=== PATIENT | female | born 1965 | race American Indian/Alaskan Native ===

== ENCOUNTER 2021-02-10 07:21 | Emergency (ER) | payer SELFPAY ==
[2021-02-10] MEDS ORDERED: ACETAMINOPHEN 500 MG TAB PO ONE (07:58)
--- NOTE | 2021-02-10 08:39 | XRay Report ---
CHEST 2 VIEWS INDICATION / CLINICAL INFORMATION: cough. COMPARISON: None available. FINDINGS: SUPPORT DEVICES: None. HEART / MEDIASTINUM: No significant abnormality. LUNGS / PLEURA: No significant pulmonary or pleural abnormality. No pneumothorax. ADDITIONAL FINDINGS: No significant additional findings. IMPRESSION: 1. No acute findings. Signer Name: Ricardo Mendoza MD Signed: 02/10/2021 8:34 AM Workstation Name: [id number]
--- NOTE | 2021-02-10 08:48 | Emergency Department Report ---
- General Chief Complaint: Earache Stated Complaint: FEVER,EAR PAIN/SIDE PAIN Time Seen by Provider: 02/10/21 07:38 Source: patient Mode of arrival: Ambulatory Limitations: No Limitations - History of Present Illness MD Complaint: fever, cough, rhinorrhea, nasal congestion, other (left earache) -: days(s) Severity: mild Severity scale (0 -10): 8 Quality: aching Consistency: constant Improves With: nothing Worsens With: nothing Associated Symptoms: fever, chills, rhinorrhea, nasal congestion, cough, ear pain. denies: myalgias, diaphoresis, headache, sore throat, stiff neck, chest pain, shortness of breath, abdominal pain, nausea, vomiting, diarrhea, dysuria, rash, confusion, right sweats, weight loss, epistaxis, hoarseness Treatments Prior to Arrival: none - Related Data Previous Rx's Medication Instructions Recorded Last Taken Type Acetaminophen [Acetaminophen 8 650 mg PO Q8H PRN #12 tablet.er 02/10/21 Unknown Rx Hour] Azithromycin [Zithromax Z-ANTONIO] 250 mg PO DAILY #6 tablet 02/10/21 Unknown Rx Allergies Allergy/AdvReac Type Severity Reaction Status Date / Time No Known Allergies Allergy Unverified 02/10/21 07:43 ED Review of Systems ROS: Stated complaint: FEVER,EAR PAIN/SIDE PAIN Other details as noted in HPI Comment: All other systems reviewed and negative Constitutional: chills, fever Eyes: denies: eye pain, eye discharge, vision change ENT: ear pain. denies: throat pain, dental pain, hearing loss, epistaxis, congestion Respiratory: cough. denies: shortness of breath, wheezing Cardiovascular: denies: chest pain, palpitations Endocrine: no symptoms reported Gastrointestinal: denies: abdominal pain, nausea, diarrhea Genitourinary: denies: urgency, dysuria, discharge Musculoskeletal: denies: back pain, joint swelling, arthralgia Skin: denies: rash, lesions Neurological: denies: headache, weakness, paresthesias Psychiatric: denies: anxiety, depression Hematological/Lymphatic: denies: easy bleeding, easy bruising ED Past Medical Hx - Past Medical History Previous Medical History?: Yes Hx Hypertension: Yes - Surgical History Past Surgical History?: Yes Additional Surgical History: x 4, Left arm - Social History Smoking Status: Former Smoker Substance Use Type: None - Medications Home Medications: Home Medications Medication Instructions Recorded Confirmed Last Taken Type Acetaminophen [Acetaminophen 8 650 mg PO Q8H PRN #12 tablet.er 02/10/21 Unknown Rx Hour] Azithromycin [Zithromax Z-ANTONIO] 250 mg PO DAILY #6 tablet 02/10/21 Unknown Rx ED Physical Exam - General Limitations: No Limitations General appearance: alert, in no apparent distress - Head Head exam: Present: atraumatic, normocephalic - Eye Eye exam: Present: normal appearance - Expanded ENT Exam Expanded Ear exam: Present: normal external inspection TM/Canal exam: Erythema: Left TM, Bulging: Left TM Mouth exam: Present: normal external inspection, tongue normal. Absent: drooling, trismus, muffled voice Teeth exam: Present: normal inspection Throat exam: Positive: normal inspection. Negative: tonsillar erythema, tonsillomegaly, tonsillar exudate, R peritonsillar mass, L peritonsillar mass - Neck Neck exam: Present: normal inspection, full ROM. Absent: tenderness, meningismus, lymphadenopathy - Respiratory Respiratory exam: Present: normal lung sounds bilaterally. Absent: respiratory distress, wheezes, rales, rhonchi, stridor, chest wall tenderness, accessory muscle use, decreased breath sounds, prolonged expiratory - Cardiovascular Cardiovascular Exam: Present: regular rate, normal rhythm, tachycardia, normal heart sounds. Absent: bradycardia, irregular rhythm, systolic murmur, diastolic murmur, rubs, gallop - GI/Abdominal GI/Abdominal exam: Present: soft, normal bowel sounds. Absent: distended, tenderness, guarding, rebound, rigid, diminished bowel sounds - Extremities Exam Extremities exam: Present: normal inspection, full ROM - Back Exam Back exam: Present: normal inspection, full ROM. Absent: tenderness, CVA tenderness (R), CVA tenderness (L), muscle spasm, paraspinal tenderness, vertebral tenderness, rash noted - Neurological Exam Neurological exam: Present: alert, oriented X3, normal gait - Psychiatric Psychiatric exam: Present: normal affect, normal mood - Skin Skin exam: Present: warm, dry, intact, normal color. Absent: rash ED Course Vital Signs 02/10/21 02/10/21 07:39 10:07 Temperature 101.6 F H 99.2 F Pulse Rate 100 H 90 Respiratory 18 18 Rate Blood Pressure 143/94 Blood Pressure 112/72 [Right] O2 Sat by Pulse 98 99 Oximetry - Reevaluation(s) Reevaluation #1: 02/10/21 08:47 Patient is speaking in full sentences with no signs of distress noted. ED Medical Decision Making - Lab Data Result diagrams: 02/10/21 08:45 02/10/21 08:45 Lab Results 02/10/21 02/10/21 02/10/21 Range/Units 08:45 08:45 08:48 WBC 4.3 L (4.5-11.0) K/mm3 RBC 4.96 (3.65-5.03) M/mm3 Hgb 12.7 (10.1-14.3) gm/dl Hct 39.0 (30.3-42.9) % MCV 79 (79-97) fl MCH 26 L (28-32) pg MCHC 33 (30-34) % RDW 22.4 H (13.2-15.2) % Plt Count 160 (140-440) K/mm3 Lymph % (Auto) 20.2 (13.4-35.0) % [place] % (Auto) 5.1 (0.0-7.3) % Eos % (Auto) 0.0 (0.0-4.3) % Baso % (Auto) 0.3 (0.0-1.8) % Lymph # (Auto) 0.9 L (1.2-5.4) K/mm3 [place] # (Auto) 0.2 (0.0-0.8) K/mm3 Eos # (Auto) 0.0 (0.0-0.4) K/mm3 Baso # (Auto) 0.0 (0.0-0.1) K/mm3 Seg Neutrophils % 74.4 H (40.0-70.0) % Seg Neutrophils # 3.2 (1.8-7.7) K/mm3 Sodium 134 L (137-145) mmol/L Potassium 4.3 (3.6-5.0) mmol/L Chloride 95.5 L (98-107) mmol/L Carbon Dioxide 28 (22-30) mmol/L Anion Gap 15 mmol/L BUN 10 (7-17) mg/dL Creatinine 0.9 (0.6-1.2) mg/dL Estimated GFR > 60 ml/min BUN/Creatinine Ratio 11 % Glucose 115 H (65-100) mg/dL Calcium 8.7 (8.4-10.2) mg/dL Urine Color Yellow (Yellow) Urine Turbidity Clear (Clear) Urine pH 5.0 (5.0-7.0) Ur Specific [place] 1.015 (1.003-1.030) Urine Protein 100 mg/dl (Negative) mg/dL Urine Glucose (UA) Neg (Negative) mg/dL Urine Ketones Tr (Negative) mg/dL Urine Blood Neg (Negative) Urine Nitrite Neg (Negative) Urine Bilirubin Neg (Negative) Urine Urobilinogen < 2.0 (<2.0) mg/dL Ur Leukocyte Esterase Neg (Negative) Urine WBC (Auto) 2.0 (0.0-6.0) /HPF Urine RBC (Auto) 4.0 (0.0-6.0) /HPF U Epithel Cells (Auto) < 1.0 (0-13.0) /HPF Urine Mucus Few /HPF - Radiology Data [facility] [address] [place] [address] XRay Report Signed Patient: HENRY RUSSELL MR#: [id number] : 1965 Acct:[id number] Age/Sex: 55 / F ADM Date: 02/10/21 Loc: ED Attending Dr: Order ing Physician: CAT JONES NP Date of Service: 02/10/21 Procedure(s): XR chest routine 2V Accession Number(s): [id number] cc: CAT JONES NP Fluoro Time In Minutes: CHEST 2 VIEWS INDICATION / CLINICAL INFORMATION: cough. COMPARISON: None available. FINDINGS: SUPPORT DEVICES: None. HEART / MEDIASTINUM: No significant abnormality. LUNGS / PLEURA: No significant pulmonary or pleural abnormality. No pneumothorax. ADDITIONAL FINDINGS: No significant additional findings. IMPRESSION: 1. No acute findings. Signer Name: Ricardo Mendoza MD Signed: 02/10/2021 8:34 AM Workstation Name: [id number] Transcribed By: DT Dictated By: Darinel Mendoza MD Electronically Authenticated By: Darinel Mendoza MD Signed Date/Time: 02/10/21833 DD/ 3 TD/TT: - Medical Decision Making This is a 55-year-old female that presents with suspected Covid and left otitis media. Patient is stable and was examined by me. Chest x-ray has been obtained and dictated by radiologist with normal exam. Patient notified of the lab results patient is notified of x-ray results with no questions noted. Patient does meet clinical concerns of COVID-19 but patient was instructed and educated on signs and symptoms and to self quarantine and seek medical attention as soon as possible if symptoms worsen and. Patient be discharged with Z-Antonio patient was instructed to increase hydration, rest and take Motrin for fever episodes. Patient received Tylenol in the ED. Vitals stable. Patient is nonfebrile and normal heart rate. Patient was instructed Follow-up with a primary care doctor in 3-5 days or if symptoms worsen and continue return to emergency room as soon as possible. At time time of discharge, the patient does not seem toxic or ill in appearance. No acute signs of distress noted. Patient agrees to discharge treatment plan of care. No further questions noted by the patient.nt. Critical care attestation.: If time is entered above; I have spent that time in minutes in the direct care of this critically ill patient, excluding procedure time. ED Disposition Clinical Impression: Suspected COVID-19 virus infection Left otitis media Qualifiers: Otitis media type: unspecified Qualified Code(s): H66.92 - Otitis media, unspecified, left ear Disposition: 01 HOME / SELF CARE / HOMELESS Is pt being admited?: No Does the pt Need Aspirin: No Condition: Stable Instructions: COVID-19 Frequently Asked Questions, COVID-19, Otitis Media, Adult, [id number] Additional Instructions: Follow-up with a primary care doctor in 3-5 days or if symptoms worsen and continue return to emergency room as soon as possible. As educated and instructed to you must self quarantine yourself and people that you have been in close contact with similar symptoms for the next 14 days. Please see your nearest health department or primary care doctor that you are referred to for COVID testing. Increased rest, hydration, and take Tylenol as prescribed for fever episode. Prescriptions: Acetaminophen [Acetaminophen 8 Hour] 650 mg PO Q8H PRN #12 tablet.er PRN Reason: fever/pain Azithromycin [Zithromax Z-ANTOINO] 250 mg PO DAILY #6 tablet Referrals: PRIMARY CARE, [Referring] - 3-5 Days DAVID BURNETT MD [Staff Physician] - 3-5 Days Time of Disposition: 09:44
[2021-02-10 08:56] LABS: Basophils % (Auto) 0.3 % (0.0-1.8); Hemoglobin 12.7 gm/dl (10.1-14.3); Lymphocytes # (Auto) 0.9 K/mm3 (1.2-5.4); Lymphocytes % (Auto) 20.2 % (13.4-35.0); Mean Corpuscular HGB Conc 33 % (30-34); Mean Corpuscular Volume 79 fl (79-97); Monocytes # (Auto) 0.2 K/mm3 (0.0-0.8); Monocytes % (Auto) 5.1 % (0.0-7.3); Red Blood Count 4.96 M/mm3 (3.65-5.03)
[2021-02-10 08:58] LABS: Red Cell Distribution Width 22.4 % (13.2-15.2)
[2021-02-10 09:00] LABS: Platelet Count 160 K/mm3 (140-440)
[2021-02-10 09:14] LABS: BUN/Creatinine Ratio 11; Blood Urea Nitrogen 10 mg/dL (7-17); Calcium 8.7 mg/dL (8.4-10.2); Hemolysis Index 1
[2021-02-10 09:14] LABS: Bilirubin,Urine NEG (Negative); Blood,Urine NEG (Negative); Color,Urine Yellow (Yellow); Mucus,Urine FEW /HPF; Urobilinogen,Urine < 2.0 mg/dL (<2.0)
[2021-02-10 10:08] VITALS: BP 112/72
== END 2021-02-10 10:38 | disposition home or self-care (01) ==
LOC: ED 07:21
DX: H66.92 Otitis media, unspecified, left ear (principal); Z20.822 Contact with and (suspected) exposure to COVID-19; I10 Essential (primary) hypertension; Z87.891 Personal history of nicotine dependence; Z98.890 Other specified postprocedural states; Z79.899 Other long term (current) drug therapy
CPT/HCPCS: 36415; 71046; 80048; 81001; 85025; 99283

== ENCOUNTER 2021-02-11 16:29 | Inpatient (IN) | payer OTHER, SELFPAY ==
[2021-02-11] MEDS ORDERED: SODIUM CHLORIDE 0.9% 1000 ML 1,000 ML IV ONE ×3 (17:44→17:45)
--- NOTE | 2021-02-11 17:48 | Emergency Department Report ---
HPI - General Chief Complaint: Dyspnea/Respdistress Time Seen by Provider: 02/11/21 17:22 - HPI HPI: Room 38 The patient is a 55-year-old female present with a chief complaint of shortness of breath. Patient states her granddaughter is Covid positive and lives in the home with her. Patient states over the past week she has had sinus headaches cough and shortness of breath. Patient states shortness of breath worsened over the past 2 days. Patient is to cough productive of white sputum. Patient is to nausea but denies vomiting. Patient admits to diarrhea and subjective fever. The patient states she has been using Mucinex [id number] and came to the ED yesterday was given a prescription for Z-Antonio these medications have not helped. The patient states she did not receive any vaccinations for COVID-19. ED Past Medical Hx - Past Medical History Hx Hypertension: Yes - Surgical History Additional Surgical History: x 4, Left arm - Family History Family history: no significant - Social History Smoking Status: Former Smoker (None x2 weeks) Substance Use Type: None (Denies illicit drug use), Alcohol (Rarely) - Medications Home Medications: Home Medications Medication Instructions Recorded Confirmed Last Taken Type Acetaminophen [Acetaminophen 8 650 mg PO Q8H PRN #12 tablet.er 02/10/21 Unknown Rx Hour] Azithromycin [Zithromax Z-ANTONIO] 250 mg PO DAILY #6 tablet 02/10/21 Unknown Rx ED Review of Systems ROS: Stated complaint: SOB, DRY MOUTH,DIZZINESS,WEAK Other details as noted in HPI Constitutional: fever Eyes: denies: eye pain ENT: other (Sinus pain) Respiratory: cough, shortness of breath Cardiovascular: denies: chest pain Endocrine: no symptoms reported Gastrointestinal: nausea, diarrhea. denies: vomiting Genitourinary: denies: dysuria Musculoskeletal: denies: back pain Neurological: headache Physical Exam - Physical Exam Vital Signs: Vital Signs 02/11/21 16:51 Temperature 102 F H Pulse Rate 113 H Respiratory 24 Rate Blood Pressure 132/79 [Left] O2 Sat by Pulse 92 Oximetry Physical Exam: GENERAL: The patient is well-developed well-nourished female lying on stretcher not appearing to be in acute distress. [] HEENT: Normocephalic. Atraumatic. Extraocular motions are intact. Patient has moist mucous membranes. NECK: Supple. Trachea midline CHEST/LUNGS: Clear to auscultation. There is frequent coughing HEART/CARDIOVASCULAR: Regular. There is tachycardia. There is no gallop rub or murmur. ABDOMEN: Abdomen is soft, nontender. Patient has normal bowel sounds. There is no abdominal distention. SKIN: There is no rash. There is no edema. There is no diaphoresis. NEURO: The patient is awake, alert, and oriented. The patient is cooperative. The patient has no focal neurologic deficits. The patient has normal speech. GCS 15 MUSCULOSKELETAL: There is no evidence of acute injury. ED Course Vital Signs 02/11/21 16:51 Temperature 102 F H Pulse Rate 113 H Respiratory 24 Rate Blood Pressure 132/79 [Left] O2 Sat by Pulse 92 Oximetry ED Medical Decision Making - Lab Data Result diagrams: 02/11/21 17:46 02/11/21 17:46 Laboratory Tests 02/11/21 02/11/21 02/11/21 17:46 17:46 17:46 WBC 5.0 RBC 4.71 Hgb 12.1 Hct 37.2 MCV 79 MCH 26 L MCHC 33 RDW 22.2 H Plt Count 169 Lymph % (Auto) 10.1 L [place] % (Auto) 4.2 Eos % (Auto) 0.0 Baso % (Auto) 0.3 Lymph # (Auto) 0.5 L [place] # (Auto) 0.2 Eos # (Auto) 0.0 Baso # (Auto) 0.0 Seg Neutrophils % 85.4 H Seg Neutrophils # 4.3 D-Dimer 292.27 H Sodium 134 L Potassium 4.2 Chloride 96.1 L Carbon Dioxide 23 Anion Gap 19 BUN 11 Creatinine 0.8 Estimated GFR > 60 BUN/Creatinine Ratio 14 Glucose 107 H Lactic Acid Calcium 8.7 Total Bilirubin 0.40 AST 26 ALT 12 Alkaline Phosphatase 52 Lactate Dehydrogenase 312 H C-Reactive Protein 9.60 H NT-Pro-B Natriuret Pep 8.76 Total Protein 7.7 Albumin 3.9 Albumin/Globulin Ratio 1.0 02/11/21 02/11/21 17:46 17:55 WBC RBC Hgb Hct MCV MCH MCHC RDW Plt Count Lymph % (Auto) [place] % (Auto) Eos % (Auto) Baso % (Auto) Lymph # (Auto) [place] # (Auto) Eos # (Auto) Baso # (Auto) Seg Neutrophils % Seg Neutrophils # D-Dimer Sodium Potassium Chloride Carbon Dioxide Anion Gap BUN Creatinine Estimated GFR BUN/Creatinine Ratio Glucose Lactic Acid 1.40 Calcium Total Bilirubin AST ALT Alkaline Phosphatase Lactate Dehydrogenase 323 H C-Reactive Protein 9.90 H NT-Pro-B Natriuret Pep Total Protein Albumin Albumin/Globulin Ratio - Radiology Data Radiology results: report reviewed (Chest x-ray), image reviewed (Chest x-ray) interpreted by me: Chest x-ray-left lower lobe infiltrate. No pneumothorax [facility] [address] [place] [address] XRay Report Signed Patient: HENRY RUSSELL MR#: [id number] : 1965 Acct:[id number] Age/Sex: 55 / F ADM Date: 02/11/21 Loc: ED Attending Dr: Ordering Physician: JAD ONEILL MD Date of Service: 02/11/21 Procedure(s): XR chest 1V ap Accession Number(s): [id number] cc: JAD ONEILL MD Fluoro Time In Minutes: CHEST 1 VIEW 02/11/2021 5:45 PM INDICATION / CLINICAL INFORMATION: Shortness of breath, hypoxia. History of exposure to COVID 19. COMPARISON: 2 views of the chest from 02/10/2021. FINDINGS: SUPPORT DEVICES: None. HEART / MEDIASTINUM: No significant abnormality. LUNGS / PLEURA: There are bibasilar opacities, left greater than right. The lungs are otherwise clear. No significant pleural effusion. No pneumothorax. ADDITIONAL FINDINGS: No significant additional findings. IMPRESSION: Bibasilar opacities are concerning for pneumonia. Continued radiographic follow-up to resolution is recommended. Signer Name: Tony Harrison MD Signed: 02/11/2021 6:09 PM Workstation Name: [id number] Transcribed By: [place] Dictated By: Tony Harrison MD Electronically Authenticated By: Tony Harrison MD Signed Date/Time: 02/11/211808 DD/ 07 TD/TT: Print Cancel - Differential Diagnosis Covid pneumonia, hypoxia Critical care attestation.: If time is entered above; I have spent that time in minutes in the direct care of this critically ill patient, excluding procedure time. ED Disposition Clinical Impression: Suspected COVID-19 virus infection, Hypoxia Disposition: ADMITTED INPATIENT Is pt being admited?: Yes Does the pt Need Aspirin: Yes Condition: Fair Time of Disposition: 19:34 (Hospitalist called (Dr. Padilla))
[2021-02-11] MEDS ORDERED: BENZONATATE 100 MG CAP PO ONE (18:11)
[2021-02-11] MEDS ORDERED: fentaNYL 100 MCG/2 ML INJ IV ONE ×2 (18:11→19:10)
[2021-02-11] MEDS ORDERED: ONDANSETRON 4 MG/2 ML INJ IV ONE (18:11)
[2021-02-11] MEDS ORDERED: ACETAMINOPHEN 500 MG TAB PO ONE (18:11)
[2021-02-11] MEDS ORDERED: AZITHROMYCIN/NS 500 MG/250 ML 500 MG/250 ML BAG IV ONE (18:12)
[2021-02-11] MEDS ORDERED: cefTRIAXone/NS 1 GM/50 ML 1 GM/50 ML BAG IV ONE (18:12)
--- NOTE | 2021-02-11 18:14 | XRay Report ---
CHEST 1 VIEW 02/11/2021 5:45 PM INDICATION / CLINICAL INFORMATION: Shortness of breath, hypoxia. History of exposure to COVID 19. COMPARISON: 2 views of the chest from 02/10/2021. FINDINGS: SUPPORT DEVICES: None. HEART / MEDIASTINUM: No significant abnormality. LUNGS / PLEURA: There are bibasilar opacities, left greater than right. The lungs are otherwise clear . No significant pleural effusion. No pneumothorax. ADDITIONAL FINDINGS: No significant additional findings. IMPRESSION: Bibasilar opacities are concerning for pneumonia. Continued radiographic follow-up to resolution is r ecommended. Signer Name: Tony Harrison MD Signed: 02/11/2021 6:09 PM Workstation Name: [id number]
[2021-02-11 18:19] LABS: Basophils % (Auto) 0.3 % (0.0-1.8); Hematocrit 37.2 % (30.3-42.9); Hemoglobin 12.1 gm/dl (10.1-14.3); Lymphocytes # (Auto) 0.5 K/mm3 (1.2-5.4); Lymphocytes % (Auto) 10.1 % (13.4-35.0); Mean Corpuscular HGB Conc 33 % (30-34); Mean Corpuscular Volume 79 fl (79-97); Monocytes # (Auto) 0.2 K/mm3 (0.0-0.8); Monocytes % (Auto) 4.2 % (0.0-7.3); Platelet Count 169 K/mm3 (140-440); Red Blood Count 4.71 M/mm3 (3.65-5.03); Red Cell Distribution Width 22.2 % (13.2-15.2)
[2021-02-11 18:47] LABS: C-Reactive Protein 9.9 mg/dL (0.00-1.30)
[2021-02-11 18:48] LABS: Alanine Aminotransferase 12 units/L (7-56); Albumin 3.9 g/dL (3.9-5); BUN/Creatinine Ratio 14; Blood Urea Nitrogen 11 mg/dL (7-17); Calcium 8.7 mg/dL (8.4-10.2); Hemolysis Index 3
[2021-02-11] MEDS ORDERED: dexAMETHasone 20 MG/5 ML VIAL IV ONE (19:35)
[2021-02-11] MEDS ORDERED: ACETAMINOPHEN 325 MG TAB PO PRN (21:21)
[2021-02-11] MEDS ORDERED: ONDANSETRON 4 MG/2 ML INJ IV PRN (21:21)
[2021-02-11] MEDS ORDERED: SODIUM CHLORIDE 0.9% 1000 ML 1,000 ML IV SCH (21:30)
[2021-02-11] MEDS: ENOXAPARIN 40 MG/0.4 ML INJ SUB-Q SCH (22:34)
[2021-02-11] MEDS: FAMOTIDINE 20 MG TAB PO SCH (22:34)
[2021-02-12 05:26] LABS: Basophils % (Auto) 0.3 % (0.0-1.8); Hematocrit 36.7 % (30.3-42.9); Hemoglobin 11.8 gm/dl (10.1-14.3); Lymphocytes # (Auto) 0.8 K/mm3 (1.2-5.4); Lymphocytes % (Auto) 18.7 % (13.4-35.0); Mean Corpuscular HGB Conc 32 % (30-34); Mean Corpuscular Volume 79 fl (79-97); Monocytes # (Auto) 0.2 K/mm3 (0.0-0.8); Monocytes % (Auto) 3.6 % (0.0-7.3); Platelet Count 164 K/mm3 (140-440); Red Blood Count 4.64 M/mm3 (3.65-5.03)
[2021-02-12 05:42] LABS: Alanine Aminotransferase 13 units/L (7-56); Albumin 3.7 g/dL (3.9-5); BUN/Creatinine Ratio 11; Blood Urea Nitrogen 9 mg/dL (7-17); Calcium 8.4 mg/dL (8.4-10.2); Hemolysis Index 1
[2021-02-12 05:44] LABS: Red Cell Distribution Width 22.3 % (13.2-15.2)
--- NOTE | 2021-02-12 06:06 | History and Physical Report ---
History of Present Illness Date of examination: 02/11/21 Date of admission: 02/11/21 19:35 Chief complaint: Fever, cough and shortness of breath for 1 week History of present illness: 55-year-old -[place] female with history of hypertension comes in for headache, cough and shortness of breath for 1 week patient states that her shortness of breath worsened over the past 2 days. Patient has cough productive of white sputum. Patient also has diarrhea and subjective fever. Patient is exposed to her granddaughter who is Covid positive and lives in the home with her. Patient was given a prescription of Z-Antonio yesterday in the emergency room which has not helped. Patient did not receive COVID-19 vaccinations. No loss of taste or smell. Feels weak and short of breath. Patient has past medical history of hypertension - Past Medical History --Hypertension: Yes - Surgical History -- x 4, --Left arm surgery - Family History --Family history: no significant - Social History --Smoking Status: Former Smoker (None x2 weeks) --Substance Use Type: None (Denies illicit drug use), Alcohol (Rarely) Review of Systems ROS: Constitutional fever for 1 week-intermittent HEENT no sore throat no post nasal drip no diplopia Neck no neck stiffness no lymph gland enlargement Chest and lungs shortness of breath and cough for 1 week CVS no chest pain no diaphoresis no palpitations GI nausea and diarrhea present Genitourinary system no dysuria no flank pain Musculoskeletal system no muscle pains no joint pains [employer] no syncope no seizures Skin no rash no itching Psychiatric no depression no homicidal or suicidal tendencies Hematologic no lymphedema or bruising Endocrine no polydipsia no polyuria no cold intolerance no heat intolerance Medications and Allergies Allergies Allergy/AdvReac Type Severity Reaction Status Date / Time No Known Allergies Allergy Verified 02/11/21 21:26 Home Medications Medication Instructions Recorded Confirmed Last Taken Type Acetaminophen [Acetaminophen 8 650 mg PO Q8H PRN #12 tablet.er 02/10/21 02/11/21 Unknown Rx Hour] Azithromycin [Zithromax Z-ANTONIO] 250 mg PO DAILY #6 tablet 02/10/21 02/11/21 Unknown Rx Active Meds: Active Medications Acetaminophen (Acetaminophen 325 Mg Tab) 650 mg PO Q4H PRN PRN Reason: Pain MILD(1-3)/Fever >100.5/MEDEL Dexamethasone (Dexamethasone 4 Mg/Ml Vial) 8 mg IV Q24H [facility] Enoxaparin Sodium (Enoxaparin 40 Mg/0.4 Ml Inj) 40 mg SUB-Q QDAY@2200 [facility] Last Admin: 02/11/21 22:34 Dose: 40 mg Documented by: Famotidine (Famotidine 20 Mg Tab) 20 mg PO BID [facility] Last Admin: 02/11/21 22:34 Dose: 20 mg Documented by: Hydromorphone HCl (Hydromorphone 1 Mg/1 Ml Inj) 0.5 mg IV Q3H PRN PRN Reason: Pain , Severe (7-10) Sodium Chloride (Nacl 0.9% 1000 Ml) 1,000 mls @ 75 mls/hr IV DIRECT [facility] Stop: 02/12/21 09:30 Last Admin: 02/11/21 22:34 Dose: 75 mls/hr Documented by: Azithromycin (Zithromax/Ns) 500 mg in 250 mls @ 250 mls/hr IV Q24H [facility] Ceftriaxone Sodium (Rocephin/Ns 2 Gm/100 Ml) 2 gm in 100 mls @ 200 mls/hr IV Q24H [facility]; Protocol Ondansetron HCl (Ondansetron 4 Mg/2 Ml Inj) 4 mg IV Q8H PRN PRN Reason: Nausea And Vomiting Oxycodone/Acetaminophen (Oxycodone /Acetaminophen 5-325mg Tab) 1 tab PO Q6H PRN PRN Reason: Pain, Moderate (4-6) Sodium Chloride (Sodium Chloride 0.9% 10 Ml Flush Syringe) 10 ml IV BID [facility] Last Admin: 02/11/21 22:34 Dose: 10 ml Documented by: Sodium Chloride (Sodium Chloride 0.9% 10 Ml Flush Syringe) 10 ml IV PRN PRN PRN Reason: LINE FLUSH Exam - Constitutional Vitals: Temp Pulse Resp BP Pulse Ox 97.7 F 70 22 135/87 100 02/12/21 05:02 02/12/21 05:02 02/12/21 05:02 02/12/21 05:02 02/12/21 05:45 General appearance: Present: no acute distress, mild distress, well-nourished - EENT Eyes: Present: PERRL ENT: hearing intact, clear oral mucosa - Neck Neck: Present: supple, normal ROM - Respiratory Respiratory effort: normal Respiratory: bilateral: CTA, rhonchi (Scattered) - Cardiovascular Heart rate: 98 Rhythm: regular Heart Sounds: Present: S1 & S2. Absent: rub, click - Extremities Extremities: pulses symmetrical, No edema Peripheral Pulses: within normal limits - Abdominal General gastrointestinal: Present: soft, non-tender, non-distended, normal bowel sounds Female genitourinary: Present: normal - Integumentary Integumentary: Present: clear, warm, dry - Musculoskeletal Musculoskeletal: gait normal, strength equal bilaterally - Psychiatric Psychiatric: appropriate mood/affect, intact judgment & insight - Neurologic Neurologic: CNII-XII intact, moves all extremities Results - Labs CBC & Chem 7: 02/12/21 05:06 02/12/21 05:06 Labs: Laboratory Last Values WBC 4.2 K/mm3 (4.5-11.0) L 02/12/21 05:06 RBC 4.64 M/mm3 (3.65-5.03) 02/12/21 05:06 Hgb 11.8 gm/dl (10.1-14.3) 02/12/21 05:06 Hct 36.7 % (30.3-42.9) 02/12/21 05:06 MCV 79 fl (79-97) 02/12/21 05:06 MCH 25 pg (28-32) L 02/12/21 05:06 MCHC 32 % (30-34) 02/12/21 05:06 RDW 22.3 % (13.2-15.2) H 02/12/21 05:06 Plt Count 164 K/mm3 (140-440) 02/12/21 05:06 Lymph % (Auto) 18.7 % (13.4-35.0) 02/12/21 05:06 [place] % (Auto) 3.6 % (0.0-7.3) 02/12/21 05:06 Eos % (Auto) 0.0 % (0.0-4.3) 02/12/21 05:06 Baso % (Auto) 0.3 % (0.0-1.8) 02/12/21 05:06 Lymph # (Auto) 0.8 K/mm3 (1.2-5.4) L 02/12/21 05:06 [place] # (Auto) 0.2 K/mm3 (0.0-0.8) 02/12/21 05:06 Eos # (Auto) 0.0 K/mm3 (0.0-0.4) 02/12/21 05:06 Baso # (Auto) 0.0 K/mm3 (0.0-0.1) 02/12/21 05:06 Seg Neutrophils % 77.4 % (40.0-70.0) H 02/12/21 05:06 Seg Neutrophils # 3.3 K/mm3 (1.8-7.7) 02/12/21 05:06 D-Dimer 292.27 ng/mlDDU (0-234) H 02/11/21 17:46 Sodium 141 mmol/L (137-145) D 02/12/21 05:06 Potassium 5.0 mmol/L (3.6-5.0) 02/12/21 05:06 Chloride 107.2 mmol/L (98-107) H 02/12/21 05:06 Carbon Dioxide 26 mmol/L (22-30) 02/12/21 05:06 Anion Gap 13 mmol/L 02/12/21 05:06 BUN 9 mg/dL (7-17) 02/12/21 05:06 Creatinine 0.8 mg/dL (0.6-1.2) 02/12/21 05:06 Estimated GFR > 60 ml/min 02/12/21 05:06 BUN/Creatinine Ratio 11 % 02/12/21 05:06 Glucose 131 mg/dL (65-100) H 02/12/21 05:06 Lactic Acid 1.40 mmol/L (0.7-2.0) 02/11/21 17:55 Calcium 8.4 mg/dL (8.4-10.2) 02/12/21 05:06 Total Bilirubin 0.20 mg/dL (0.1-1.2) 02/12/21 05:06 AST 24 units/L (5-40) 02/12/21 05:06 ALT 13 units/L (7-56) 02/12/21 05:06 Alkaline Phosphatase 46 units/L (35-129) 02/12/21 05:06 Lactate Dehydrogenase 312 units/L (91-180) H 02/11/21 17:46 Lactate Dehydrogenase 323 units/L (91-180) H 02/11/21 17:46 C-Reactive Protein 9.60 mg/dL (0.00-1.30) H 02/11/21 17:46 C-Reactive Protein 9.90 mg/dL (0.00-1.30) H 02/11/21 17:46 NT-Pro-B Natriuret Pep 8.76 pg/mL (0-900) 02/11/21 17:46 Total Protein 7.2 g/dL (6.3-8.2) 02/12/21 05:06 Albumin 3.7 g/dL (3.9-5) L 02/12/21 05:06 Albumin/Globulin Ratio 1.1 % 02/12/21 05:06 Short CBC 02/11/21 02/12/21 Range/Units 17:46 05:06 WBC 5.0 4.2 L (4.5-11.0) K/mm3 Hgb 12.1 11.8 (10.1-14.3) gm/dl Hct 37.2 36.7 (30.3-42.9) % Plt Count 169 164 (140-440) K/mm3 [facility] 02/11/21 02/12/21 17:46 05:06 Sodium 134 L 141 D Potassium 4.2 5.0 Chloride 96.1 L 107.2 H Carbon Dioxide 23 26 BUN 11 9 Creatinine 0.8 0.8 Glucose 107 H 131 H Calcium 8.7 8.4 Liver Function 02/11/21 02/12/21 Range/Units 17:46 05:06 Total Bilirubin 0.40 0.20 (0.1-1.2) mg/dL AST 26 24 (5-40) units/L ALT 12 13 (7-56) units/L Alkaline Phosphatase 52 46 (35-129) units/L Albumin 3.9 3.7 L (3.9-5) g/dL Microbiology: Microbiology 02/11/21 17:46 Peripheral/Venous Blood Culture - Preliminary Culture in Progress 02/11/21 17:46 Peripheral/Venous Blood Culture - Preliminary Culture in Progress - Imaging and Cardiology Chest x-ray: report reviewed Imaging and Cardiology: Chest x-ray Bibasilar opacities concerning for pneumonia. Continue radiographic follow-up to resolution is recommended. [place]/IV: Voiding Method Toilet Assessment and Plan Advance Directives: Yes (Full code) VTE prophylaxis?: Chemical Plan of care discussed with patient/family: Yes - Patient Problems (1) Acute respiratory failure with hypoxia Current Visit: Yes Status: Acute Plan to address problem: Patient is oxygen saturations ranging between 85 and 90 room air Improved with nasal cannula oxygen Respiratory assessment and treatment Possible Covid pneumonia (2) SIRS (systemic inflammatory response syndrome) Current Visit: Yes Status: Acute Plan to address problem: Patient has systemic inflammatory response syndrome. D-dimer is 292 CRP is 9.9 and LDH is 323 which is in favor of SIRS. (3) Bilateral pneumonia Current Visit: Yes Status: Acute Qualifiers: Aspiration pneumonia type: unspecified Plan to address problem: Treat as community-acquired pneumonia for now Patient initiated on Zithromax and ceftriaxone (4) Suspected COVID-19 virus infection Current Visit: Yes Status: Acute Plan to address problem: The evidence is more in favor of Covid pneumonia IV Decadron initiated IV remdesivir once coronavirus PCR results come back and if positive (5) Hyponatremia Current Visit: Yes Status: Acute Plan to address problem: Mild--sodium of 134 IV normal saline for 12 hours (6) DVT prophylaxis Current Visit: Yes Status: Acute Plan to address problem: On Lovenox and GI prophylaxis
[2021-02-12] MEDS: FAMOTIDINE 20 MG TAB PO SCH ×2 (10:32→22:22)
[2021-02-12] MEDS: dexAMETHasone 4 MG/ML VIAL IV SCH (10:32)
[2021-02-12] MEDS ORDERED: REMDESIVIR 200 MG in SODIUM CHLORIDE 0.9% 250ML 250 ML IV ONE (14:29)
--- NOTE | 2021-02-12 14:31 | Consultation ---
History of Present Illness - Reason for Consult Consult date: 02/12/21 COVID-19 PUI Requesting physician: ERA AUGUSTINE - History of Present Illness The patient is a 55-year-old female with hypertension admitted with fever, cough, shortness of breath. Unvaccinated, was exposed to granddaughter who was Covid positive. COVID-19 PCR is pending. Patient noted to have bilateral opacities on chest x-ray. Labs revealed CRP 9.9, procalcitonin 0.9, mild leukopenia, D-dimer 292 Review of Systems: reviewed in the chart, unable to obtain, minimize risk of transmission Medications and Allergies Allergies Allergy/AdvReac Type Severity Reaction Status Date / Time No Known Allergies Allergy Verified 02/11/21 21:26 Home Medications Medication Instructions Recorded Confirmed Last Taken Type Acetaminophen [Acetaminophen 8 650 mg PO Q8H PRN #12 tablet.er 02/10/21 02/11/21 Unknown Rx Hour] Azithromycin [Zithromax Z-ANTONIO] 250 mg PO DAILY #6 tablet 02/10/21 02/11/21 Unknown Rx Active Meds: Active Medications Acetaminophen (Acetaminophen 325 Mg Tab) 650 mg PO Q4H PRN PRN Reason: Pain MILD(1-3)/Fever >100.5/MEDEL Dexamethasone (Dexamethasone 4 Mg/Ml Vial) 8 mg IV DAILY [facility] Stop: 02/20/21 10:01 Last Admin: 02/12/21 10:32 Dose: 8 mg Documented by: Enoxaparin Sodium (Enoxaparin 40 Mg/0.4 Ml Inj) 40 mg SUB-Q QDAY@2200 [facility] Last Admin: 02/11/21 22:34 Dose: 40 mg Documented by: Famotidine (Famotidine 20 Mg Tab) 20 mg PO BID [facility] Last Admin: 02/12/21 10:32 Dose: 20 mg Documented by: Hydromorphone HCl (Hydromorphone 1 Mg/1 Ml Inj) 0.5 mg IV Q3H PRN PRN Reason: Pain , Severe (7-10) Azithromycin (Zithromax/Ns) 500 mg in 250 mls @ 250 mls/hr IV Q24H [facility] Stop: 02/15/21 18:59 Ceftriaxone Sodium (Rocephin/Ns 2 Gm/100 Ml) 2 gm in 100 mls @ 200 mls/hr IV Q24H [facility]; Protocol Stop: 02/15/21 18:29 REMDESIVIR 200 mg/ Sodium (Chloride) 250 mls @ 500 mls/hr IV ONCE ONE Stop: 02/12/21 14:58 REMDESIVIR 100 mg/ Sodium (Chloride) 250 mls @ 500 mls/hr IV Q24HR@2100 [facility] Stop: 02/16/21 21:29 Ondansetron HCl (Ondansetron 4 Mg/2 Ml Inj) 4 mg IV Q8H PRN PRN Reason: Nausea And Vomiting Oxycodone/Acetaminophen (Oxycodone /Acetaminophen 5-325mg Tab) 1 tab PO Q6H PRN PRN Reason: Pain, Moderate (4-6) Sodium Chloride (Sodium Chloride 0.9% 10 Ml Flush Syringe) 10 ml IV BID [facility] Last Admin: 02/12/21 10:33 Dose: 10 ml Documented by: Sodium Chloride (Sodium Chloride 0.9% 10 Ml Flush Syringe) 10 ml IV PRN PRN PRN Reason: LINE FLUSH Sodium Chloride (Sodium Chloride 0.9% 50 Ml Ivpb) 50 ml IV Q24HR@2100 [facility] Stop: 02/16/21 21:01 Physical Examination - Physical Exam Narrative exam: Physical Exam (reviewed in chart to minimize risk of transmission) Constitutional: deferred Head, Ears, Nose: deferred Eyes: deferred Neck: deferred Oral: deferred Cardiovascular: deferred Respiratory: deferred GI: deferred Musculoskeletal: deferred Skin: deferred Hem/Lymphatic: deferred Psych: deferred Neurological: deferred - Constitutional Vitals: Vital Signs Temp Pulse Resp BP Pulse Ox 98.1 F 68 22 141/83 96 02/12/21 11:53 02/12/21 11:53 02/12/21 11:53 02/12/21 11:53 02/12/21 11:53 Temperature -Last 24 Hours Temperature 98.1 F Temperature 97.7 F Temperature 99.1 F Temperature 102 F Results - Labs CBC & Chem 7: 02/12/21 05:06 02/12/21 05:06 Labs: Abnormal lab results 02/11/21 02/11/21 02/11/21 Range/Units 17:46 17:46 17:46 WBC (4.5-11.0) K/mm3 MCH 26 L (28-32) pg RDW 22.2 H (13.2-15.2) % Lymph % (Auto) 10.1 L (13.4-35.0) % Lymph # (Auto) 0.5 L (1.2-5.4) K/mm3 Seg Neutrophils % 85.4 H (40.0-70.0) % D-Dimer 292.27 H (0-234) ng/mlDDU Sodium 134 L (137-145) mmol/L Chloride 96.1 L (98-107) mmol/L Glucose 107 H (65-100) mg/dL Lactate Dehydrogenase 312 H (91-180) units/L C-Reactive Protein 9.60 H (0.00-1.30) mg/dL Albumin (3.9-5) g/dL 02/11/21 02/12/21 02/12/21 Range/Units 17:46 05:06 05:06 WBC 4.2 L (4.5-11.0) K/mm3 MCH 25 L (28-32) pg RDW 22.3 H (13.2-15.2) % Lymph % (Auto) (13.4-35.0) % Lymph # (Auto) 0.8 L (1.2-5.4) K/mm3 Seg Neutrophils % 77.4 H (40.0-70.0) % D-Dimer (0-234) ng/mlDDU Sodium (137-145) mmol/L Chloride 107.2 H (98-107) mmol/L Glucose 131 H (65-100) mg/dL Lactate Dehydrogenase 323 H (91-180) units/L C-Reactive Protein 9.90 H (0.00-1.30) mg/dL Albumin 3.7 L (3.9-5) g/dL - Imaging and Cardiology Chest x-ray: report reviewed, image reviewed Assessment and Plan Cultures: SARS CoV2 PCR: Pending 02/11/2021 blood culture: In process A/P: 55-year-old female with hypertension admitted as COVID-19 PUI: #Bilateral pneumonia: Suspected COVID-19 #Acute hypoxic respiratory failure: On nasal cannula #Leukopenia: Likely related to viral illness Recs: f/u COVID-19 PCR continue IV/PO Dexamethasone x 10 days IV remdesivir x 5 days ordered given high suspicion for COVID-19 Procalcitonin elevated, complete empiric antibiotic course for 5 days prophylactic anticoagulation based on d-dimer per hospital protocol trend ferritin, d-dimer, CRP every 2-3 days Mason Macdonald MD, FACP [facility] ([facility] O: [phone] F: [phone]
--- NOTE | 2021-02-12 14:42 | Progress Note ---
Assessment and Plan The patient is a 55-year-old female who had been vaccinated for Covid and had positive exposure with history of hypertension admitted with fever, cough, shortness of breath. Patient noted to have bilateral opacities on chest x-ray. Labs revealed CRP 9.9, procalcitonin 0.9, mild leukopenia, D-dimer 292. Admitted for acute respiratory failure and Covid PUI Assessment and plan: -- Acute respiratory failure with hypoxia Patient is oxygen saturations ranging between 85 and 90 room air Improved with nasal cannula oxygen Respiratory assessment and treatment Possible Covid pneumonia -- SIRS (systemic inflammatory response syndrome) Patient has systemic inflammatory response syndrome. D-dimer is 292 CRP is 9.9 and LDH is 323 which is in favor of SIRS. -- Bilateral pneumonia Treat as community-acquired pneumonia for now Patient initiated on Zithromax and ceftriaxone --Suspected COVID-19 virus infection The evidence is more in favor of Covid pneumonia IV Decadron initiated IV remdesivir once coronavirus PCR results come back and if positive -- Hyponatremia Mild--sodium of 134 s/p IV normal saline for 12 hours --DVT prophylaxis On Lovenox and GI prophylaxis Daily clinical course: 02/12/21: Pending Covid test, patient on 2 to 3 L room air O2. Continue empiric antibiotics for now, follow clinically. Initiated on dexamethasone and remdesivir for high suspicion of COVID-19 pneumonia. Subjective Date of service: 02/12/21 Interval history: Patient seen and examined. Medical records and medication list reviewed. No acute event overnight noted by the RN. Patient complains of cough and difficulty breathing with exertion. Patient is tolerating diet. Patient on nasal cannula O2 Discussed plan of care at bedside with patient. Objective - Exam Narrative Exam: Limited physical exam due to COVID-19 pandemic to minimize transmission of the disease and to preserve PPE. Vital reviewed and stable. GENERAL: well-developed well-nourished -[place] female lying on bed appeared to be in no discomfort. HEENT: Normocephalic. Atraumatic. NECK: Supple. CHEST/LUNGS: breathing nonlabored. HEART/CARDIOVASCULAR: Heart rate stable on telemetry ABDOMEN: Visibly not distended SKIN: There is no rash NEURO: No focal motor deficit. Follows command. MUSCULOSKELETAL: No joint effusion EXTRIMITY: No swelling, no cyanosis or clubbing. PSYCH: Cooperative. - Constitutional Vitals: Vital Signs - 12hr 02/12/21 02/12/21 02/12/21 05:02 05:45 11:39 Temperature 97.7 F Pulse Rate 70 Respiratory 22 Rate Blood Pressure 135/87 O2 Sat by Pulse 88 100 98 Oximetry 02/12/21 11:53 Temperature 98.1 F Pulse Rate 68 Respiratory 22 Rate Blood Pressure 141/83 O2 Sat by Pulse 96 Oximetry - Labs CBC & Chem 7: 02/12/21 05:06 02/13/21 05:05 Labs: Abnormal lab results 02/11/21 02/11/21 02/11/21 Range/Units 17:46 17:46 17:46 WBC (4.5-11.0) K/mm3 MCH 26 L (28-32) pg RDW 22.2 H (13.2-15.2) % Lymph % (Auto) 10.1 L (13.4-35.0) % Lymph # (Auto) 0.5 L (1.2-5.4) K/mm3 Seg Neutrophils % 85.4 H (40.0-70.0) % D-Dimer 292.27 H (0-234) ng/mlDDU Sodium 134 L (137-145) mmol/L Chloride 96.1 L (98-107) mmol/L Glucose 107 H (65-100) mg/dL Lactate Dehydrogenase 312 H (91-180) units/L C-Reactive Protein 9.60 H (0.00-1.30) mg/dL Albumin (3.9-5) g/dL 02/11/21 02/12/21 02/12/21 Range/Units 17:46 05:06 05:06 WBC 4.2 L (4.5-11.0) K/mm3 MCH 25 L (28-32) pg RDW 22.3 H (13.2-15.2) % Lymph % (Auto) (13.4-35.0) % Lymph # (Auto) 0.8 L (1.2-5.4) K/mm3 Seg Neutrophils % 77.4 H (40.0-70.0) % D-Dimer (0-234) ng/mlDDU Sodium (137-145) mmol/L Chloride 107.2 H (98-107) mmol/L Glucose 131 H (65-100) mg/dL Lactate Dehydrogenase 323 H (91-180) units/L C-Reactive Protein 9.90 H (0.00-1.30) mg/dL Albumin 3.7 L (3.9-5) g/dL
[2021-02-12] MEDS: oxyCODONE /ACETAMINOPHEN 5-325MG TAB PO PRN (15:28)
[2021-02-12 16:10] LABS: Alanine Aminotransferase 12 units/L (7-56); Albumin 3.4 g/dL (3.9-5); Blood Urea Nitrogen 9 mg/dL (7-17); Calcium 8.3 mg/dL (8.4-10.2); Hemolysis Index 4
[2021-02-12 16:52] LABS: BUN/Creatinine Ratio 13
[2021-02-12] MEDS: AZITHROMYCIN/NS 500 MG/250 ML 500 MG/250 ML BAG IV SCH (18:19)
[2021-02-12] MEDS: cefTRIAXone/NS 2 GM/100 ML 2 GM/100 ML BAG IV SCH (18:23)
[2021-02-12] MEDS: HYDROmorphone 1 MG/1 ML INJ IV PRN (22:16)
[2021-02-12] MEDS: ENOXAPARIN 40 MG/0.4 ML INJ SUB-Q SCH (22:22)
[2021-02-12] MEDS: SODIUM CHLORIDE 0.9% 50 ML IVPB IV SCH (22:22)
[2021-02-13] MEDS: oxyCODONE /ACETAMINOPHEN 5-325MG TAB PO PRN (03:15)
[2021-02-13 06:31] LABS: Alanine Aminotransferase 16 units/L (7-56); Albumin 3.5 g/dL (3.9-5); Blood Urea Nitrogen 11 mg/dL (7-17); Calcium 8.5 mg/dL (8.4-10.2); Hemolysis Index 0
[2021-02-13 06:32] LABS: BUN/Creatinine Ratio 18
[2021-02-13] MEDS: dexAMETHasone 4 MG/ML VIAL IV SCH (09:54)
[2021-02-13] MEDS: FAMOTIDINE 20 MG TAB PO SCH ×2 (09:54→21:30)
--- NOTE | 2021-02-13 11:36 | Progress Note ---
Assessment and Plan Cultures: SARS CoV2 PCR: positive 02/11/2021 blood culture: no growth A/P: 55-year-old female with hypertension admitted as COVID-19 PUI: #Bilateral pneumonia secondary to COVID-19 #Acute hypoxic respiratory failure: On nasal cannula #Leukopenia: Likely related to viral illness Recs: continue IV/PO Dexamethasone x 10 days continue IV remdesivir, monitor LFTs complete 3 days of empiric antibiotics due to elevated procal prophylactic anticoagulation based on d-dimer per hospital protocol trend d-dimer, CRP every 2-3 days Ambulatory saturations, once weaned off oxygen, can discharge, does not need to complete remdesivir course Mason Macdonald MD, FACP [facility] ([facility] O: [phone] F: [phone] Subjective Date of service: 02/13/21 Interval history: No fever. COVID 19 test came back positive. Procalcitonin 0.9. Objective - Exam Narrative Exam: Physical Exam (reviewed in chart to minimize risk of transmission) Constitutional: deferred Head, Ears, Nose: deferred Eyes: deferred Neck: deferred Oral: deferred Cardiovascular: deferred Respiratory: deferred GI: deferred Musculoskeletal: deferred Skin: deferred Hem/Lymphatic: deferred Psych: deferred Neurological: deferred - Constitutional Vitals: Vital Signs Temp Pulse Resp BP Pulse Ox 98.5 F 63 18 113/79 97 02/12/21 22:57 02/12/21 22:57 02/12/21 22:57 02/12/21 22:57 02/13/21 10:00 Temperature -Last 24 Hours Temperature 98.5 F Temperature 97.7 F Temperature 98.1 F - Labs CBC & Chem 7: 02/12/21 05:06 02/13/21 05:05 Labs: Abnormal lab results 02/12/21 02/12/21 02/13/21 Range/Units 14:37 Unknown 05:05 Glucose 114 H 114 H (65-100) mg/dL Calcium 8.3 L (8.4-10.2) mg/dL Albumin 3.4 L 3.5 L (3.9-5) g/dL Coronavirus (PCR) Positive A (Negative)
--- NOTE | 2021-02-13 15:02 | Progress Note ---
Assessment and Plan The patient is a 55-year-old female who had been vaccinated for Covid and had positive exposure with history of hypertension admitted with fever, cough, shortness of breath. Patient noted to have bilateral opacities on chest x-ray. Labs revealed CRP 9.9, procalcitonin 0.9, mild leukopenia, D-dimer 292. Admitted for acute respiratory failure and Covid PUI Assessment and plan: -- Acute respiratory failure with hypoxia Patient is oxygen saturations ranging between 85 and 90 room air Improved with nasal cannula oxygen Respiratory assessment and treatment Possible Covid pneumonia -- SIRS (systemic inflammatory response syndrome) Patient has systemic inflammatory response syndrome. D-dimer is 292 CRP is 9.9 and LDH is 323 which is in favor of SIRS. -- Bilateral pneumonia Treat as community-acquired pneumonia for now Patient initiated on Zithromax and ceftriaxone --Suspected COVID-19 virus infection The evidence is more in favor of Covid pneumonia IV Decadron initiated IV remdesivir once coronavirus PCR results come back and if positive -- Hyponatremia Mild--sodium of 134 s/p IV normal saline for 12 hours --DVT prophylaxis On Lovenox and GI prophylaxis Daily clinical course: 02/12/21: Pending Covid test, patient on 2 to 3 L room air O2. Continue empiric antibiotics for now, follow clinically. Initiated on dexamethasone and remdesivir for high suspicion of COVID-19 pneumonia. 02/13/21; continue IV remdesivir, monitor LFTs, complete 3 days of empiric antibiotics due to elevated procalcitonin. Subjective Date of service: 02/13/21 Interval history: Patient seen and examined. Medical records and medication list reviewed. No acute event overnight noted by the RN. Patient complains of cough and difficulty breathing with exertion. Patient is tolerating diet. Patient on nasal cannula O2 Discussed plan of care at bedside with patient. Objective - Exam Narrative Exam: Limited physical exam due to COVID-19 pandemic to minimize transmission of the disease and to preserve PPE. Vital reviewed and stable. GENERAL: well-developed well-nourished -[place] female lying on bed appeared to be in no discomfort. HEENT: Normocephalic. Atraumatic. NECK: Supple. CHEST/LUNGS: breathing nonlabored. HEART/CARDIOVASCULAR: Heart rate stable on telemetry ABDOMEN: Visibly not distended SKIN: There is no rash NEURO: No focal motor deficit. Follows command. MUSCULOSKELETAL: No joint effusion EXTRIMITY: No swelling, no cyanosis or clubbing. PSYCH: Cooperative. - Constitutional Vitals: Vital Signs - 12hr 02/13/21 02/13/21 02/13/21 04:25 10:00 12:45 Temperature 97.9 F 97.8 F Pulse Rate 65 59 L Respiratory 18 22 Rate Blood Pressure 124/80 133/82 O2 Sat by Pulse 98 96 98 Oximetry - Labs CBC & Chem 7: 02/12/21 05:06 02/13/21 05:05 Labs: Abnormal lab results 02/12/21 02/12/21 02/13/21 Range/Units 14:37 Unknown 05:05 Glucose 114 H 114 H (65-100) mg/dL Calcium 8.3 L (8.4-10.2) mg/dL Albumin 3.4 L 3.5 L (3.9-5) g/dL Coronavirus (PCR) Positive A (Negative)
[2021-02-13] MEDS: cefTRIAXone/NS 2 GM/100 ML 2 GM/100 ML BAG IV SCH (18:07)
[2021-02-13] MEDS: AZITHROMYCIN/NS 500 MG/250 ML 500 MG/250 ML BAG IV SCH (18:07)
[2021-02-13] MEDS: ENOXAPARIN 40 MG/0.4 ML INJ SUB-Q SCH (21:30)
[2021-02-13] MEDS: SODIUM CHLORIDE 0.9% 50 ML IVPB IV SCH (21:30)
[2021-02-13] MEDS: REMDESIVIR 100 MG in SODIUM CHLORIDE 0.9% 250ML 250 ML IV SCH (21:30)
[2021-02-13] MEDS: guaiFENesin 100 MG/5 ML ORAL LIQD PO PRN (22:21)
[2021-02-13] MEDS: HYDROmorphone 1 MG/1 ML INJ IV PRN (22:22)
[2021-02-14 06:37] LABS: Alanine Aminotransferase 17 units/L (7-56); Albumin 3.3 g/dL (3.9-5); Blood Urea Nitrogen 14 mg/dL (7-17); Calcium 8.4 mg/dL (8.4-10.2); Hemolysis Index 27
[2021-02-14 07:05] LABS: BUN/Creatinine Ratio 20
[2021-02-14] MEDS: dexAMETHasone 4 MG/ML VIAL IV SCH (09:26)
[2021-02-14] MEDS: FAMOTIDINE 20 MG TAB PO SCH ×2 (09:26→21:40)
[2021-02-14] MEDS: oxyCODONE /ACETAMINOPHEN 5-325MG TAB PO PRN ×2 (09:34→21:40)
--- NOTE | 2021-02-14 14:02 | Progress Note ---
Assessment and Plan Cultures: SARS CoV2 PCR: positive 02/11/2021 blood culture: no growth A/P: 55-year-old female with hypertension admitted as COVID-19 PUI: #Bilateral pneumonia secondary to COVID-19 #Acute hypoxic respiratory failure: On nasal cannula #Leukopenia: Likely related to viral illness Recs: continue IV/PO Dexamethasone x 10 days continue IV remdesivir, monitor LFTs complete 3 days of empiric antibiotics due to elevated procal prophylactic anticoagulation based on d-dimer per hospital protocol trend d-dimer, CRP every 2-3 days Ambulatory saturations, once weaned off oxygen, can discharge, does not need to complete remdesivir course ID will sign off. Please reconsult as needed. Mason Macdonald MD, FACP [facility] ([facility] ([facility] O: [phone] F: [phone] Subjective Date of service: 02/14/21 Interval history: No fever. Remains on oxygen by nasal cannula. Objective - Exam Narrative Exam: Physical Exam (reviewed in chart to minimize risk of transmission) Constitutional: deferred Head, Ears, Nose: deferred Eyes: deferred Neck: deferred Oral: deferred Cardiovascular: deferred Respiratory: deferred GI: deferred Musculoskeletal: deferred Skin: deferred Hem/Lymphatic: deferred Psych: deferred Neurological: deferred - Constitutional Vitals: Vital Signs Temp Pulse Resp BP Pulse Ox 97.8 F 70 20 134/88 97 02/14/21 06:44 02/14/21 06:44 02/14/21 06:44 02/14/21 06:44 02/14/21 10:00 Temperature -Last 24 Hours Temperature 97.8 F Temperature 98.4 F Temperature 98.1 F - Labs CBC & Chem 7: 02/12/21 05:06 02/14/21 05:56 Labs: Abnormal lab results 02/14/21 Range/Units 05:56 Glucose 111 H (65-100) mg/dL Albumin 3.3 L (3.9-5) g/dL
--- NOTE | 2021-02-14 15:25 | Progress Note ---
Assessment and Plan The patient is a 55-year-old female who had been vaccinated for Covid and had positive exposure with history of hypertension admitted with fever, cough, shortness of breath. Patient noted to have bilateral opacities on chest x-ray. Labs revealed CRP 9.9, procalcitonin 0.9, mild leukopenia, D-dimer 292. Admitted for acute respiratory failure and Covid PUI Assessment and plan: -- Acute respiratory failure with hypoxia Patient is oxygen saturations ranging between 85 and 90 room air Improved with nasal cannula oxygen Respiratory assessment and treatment Possible Covid pneumonia -- SIRS (systemic inflammatory response syndrome) Patient has systemic inflammatory response syndrome. D-dimer is 292 CRP is 9.9 and LDH is 323 which is in favor of SIRS. -- Bilateral pneumonia Treat as community-acquired pneumonia for now Patient initiated on Zithromax and ceftriaxone --Suspected COVID-19 virus infection The evidence is more in favor of Covid pneumonia IV Decadron initiated IV remdesivir once coronavirus PCR results come back and if positive -- Hyponatremia Mild--sodium of 134 s/p IV normal saline for 12 hours --DVT prophylaxis On Lovenox and GI prophylaxis Daily clinical course: 02/12/21: Pending Covid test, patient on 2 to 3 L room air O2. Continue empiric antibiotics for now, follow clinically. Initiated on dexamethasone and remdesivir for high suspicion of COVID-19 pneumonia. 02/13/21; positive for COVID-19. Continue IV remdesivir, monitor LFTs, complete 3 days of empiric antibiotics due to elevated procalcitonin. 02/14/21: Follow inflammatory markers, continue remdesivir and steroid. Patient remains on 2 L nasal cannula O2. Continue to provide supportive care Subjective Date of service: 02/14/21 Interval history: Patient seen and examined. Medical records and medication list reviewed. No acute event overnight noted by the RN. Patient complains of cough and difficulty breathing with exertion. Patient is tolerating diet. Patient on nasal cannula O2 Discussed plan of care at bedside with patient. Objective - Exam Narrative Exam: Limited physical exam due to COVID-19 pandemic to minimize transmission of the disease and to preserve PPE. Vital reviewed and stable. GENERAL: well-developed well-nourished -[place] female lying on bed appeared to be in no discomfort. HEENT: Normocephalic. Atraumatic. NECK: Supple. CHEST/LUNGS: breathing nonlabored. HEART/CARDIOVASCULAR: Heart rate stable on telemetry ABDOMEN: Visibly not distended SKIN: There is no rash NEURO: No focal motor deficit. Follows command. MUSCULOSKELETAL: No joint effusion EXTRIMITY: No swelling, no cyanosis or clubbing. PSYCH: Cooperative. - Constitutional Vitals: Vital Signs - 12hr 02/14/21 02/14/21 06:44 10:00 Temperature 97.8 F Pulse Rate 70 Respiratory 20 Rate Blood Pressure 134/88 O2 Sat by Pulse 97 97 Oximetry - Labs CBC & Chem 7: 02/12/21 05:06 02/15/21 05:19 Labs: Abnormal lab results 02/14/21 Range/Units 05:56 Glucose 111 H (65-100) mg/dL Albumin 3.3 L (3.9-5) g/dL
[2021-02-14 16:44] LABS: C-Reactive Protein 1.7 mg/dL (0.00-1.30)
[2021-02-14] MEDS: cefTRIAXone/NS 2 GM/100 ML 2 GM/100 ML BAG IV SCH (18:13)
[2021-02-14] MEDS: AZITHROMYCIN/NS 500 MG/250 ML 500 MG/250 ML BAG IV SCH (18:14)
[2021-02-14] MEDS: REMDESIVIR 100 MG in SODIUM CHLORIDE 0.9% 250ML 250 ML IV SCH (21:36)
[2021-02-14] MEDS: SODIUM CHLORIDE 0.9% 50 ML IVPB IV SCH (21:37)
[2021-02-14] MEDS: ENOXAPARIN 40 MG/0.4 ML INJ SUB-Q SCH (21:37)
[2021-02-14] MEDS: guaiFENesin 100 MG/5 ML ORAL LIQD PO PRN (21:38)
[2021-02-15 06:28] LABS: Alanine Aminotransferase 20 units/L (7-56); Albumin 3.5 g/dL (3.9-5); Blood Urea Nitrogen 13 mg/dL (7-17); Calcium 8.7 mg/dL (8.4-10.2); Hemolysis Index 0
[2021-02-15 06:29] LABS: BUN/Creatinine Ratio 22
[2021-02-15] MEDS: dexAMETHasone 4 MG/ML VIAL IV SCH (09:52)
[2021-02-15] MEDS: FAMOTIDINE 20 MG TAB PO SCH ×2 (09:52→22:30)
--- NOTE | 2021-02-15 16:24 | Progress Note ---
Assessment and Plan - Patient Problems (1) Acute respiratory failure with hypoxia Current Visit: Yes Status: Acute Plan to address problem: Patient on 3 Liters NCO2 (2) SIRS (systemic inflammatory response syndrome) Current Visit: Yes Status: Acute Plan to address problem: Patient has systemic inflammatory response syndrome. D-dimer is 292 CRP is 9.9 and LDH is 323 which is in favor of SIRS. (3) Bilateral pneumonia Current Visit: Yes Status: Acute Qualifiers: Aspiration pneumonia type: unspecified Plan to address problem: Treat as community-acquired pneumonia for now Patient initiated on Zithromax and ceftriaxone (4) Suspected COVID-19 virus infection Current Visit: Yes Status: Acute Plan to address problem: Covid positive On remdesivir day 4 (5) Hyponatremia Current Visit: Yes Status: Acute Plan to address problem: Corrected (6) DVT prophylaxis Current Visit: Yes Status: Acute Plan to address problem: On Lovenox and GI prophylaxis Subjective Date of service: 02/15/21 Principal diagnosis: Acute respiratory failure with hypoxia, Covid pneumonia Interval history: The patient is a 55-year-old female who had been vaccinated for Covid and had positive exposure with history of hypertension admitted with fever, cough, shortness of breath. Patient noted to have bilateral opacities on chest x-ray. Labs revealed CRP 9.9, procalcitonin 0.9, mild leukopenia, D-dimer 292. Admitted for acute respiratory failure and Covid PUI Daily clinical course: 02/12/21: Pending Covid test, patient on 2 to 3 L room air O2. Continue empiric antibiotics for now, follow clinically. Initiated on dexamethasone and remdesivir for high suspicion of COVID-19 pneumonia. 02/13/21; continue IV remdesivir, monitor LFTs, complete 3 days of empiric antibiotics due to elevated procalcitonin. February 14, 2021 Continue IV remdesivir and monitor LFTs Continue IV antibiotics February 15, 2021 Symptomatically better On 3 L nasal cannula Day 4 of remdesivir Objective - Constitutional Vitals: Vital Signs - 12hr 02/15/21 02/15/21 02/15/21 04:47 08:43 10:00 Temperature 97.8 F Pulse Rate 54 L Respiratory 16 20 Rate Blood Pressure 170/103 O2 Sat by Pulse 99 96 97 Oximetry General appearance: Present: no acute distress, well-nourished - EENT Eyes: PERRL, EOM intact ENT: hearing intact, clear oral mucosa Ears: bilateral: normal - Neck Neck: supple, normal ROM - Respiratory Respiratory effort: normal Respiratory: bilateral: CTA - Breasts Breasts: normal - Cardiovascular Heart rate: 78 Rhythm: regular Heart Sounds: Present: S1 & S2. Absent: gallop, rub Extremities: pulses intact, No edema, normal color, Full ROM - Gastrointestinal General gastrointestinal: Present: soft, non-tender, non-distended, normal bowel sounds Rectal Exam: deferred - Genitourinary Female genitourinary: normal - Integumentary Integumentary: clear, warm, dry - Musculoskeletal Musculoskeletal: 1, strength equal bilaterally - Neurologic Neurologic: moves all extremities - Psychiatric Psychiatric: memory intact, appropriate mood/affect, intact judgment & insight - Allied health notes Allied health notes reviewed: nursing, case management - Labs CBC & Chem 7: 02/12/21 05:06 02/15/21 05:19 Labs: Abnormal lab results 02/14/21 02/14/21 02/15/21 Range/Units 15:47 15:47 05:19 D-Dimer 296.25 H (0-234) ng/mlDDU Glucose 103 H (65-100) mg/dL Lactate Dehydrogenase 345 H (91-180) units/L C-Reactive Protein 1.70 H (0.00-1.30) mg/dL Albumin 3.5 L (3.9-5) g/dL
[2021-02-15] MEDS: SODIUM CHLORIDE 0.9% 50 ML IVPB IV SCH (22:30)
[2021-02-15] MEDS: ENOXAPARIN 40 MG/0.4 ML INJ SUB-Q SCH (22:30)
[2021-02-15] MEDS: REMDESIVIR 100 MG in SODIUM CHLORIDE 0.9% 250ML 250 ML IV SCH (22:30)
[2021-02-15] MEDS: oxyCODONE /ACETAMINOPHEN 5-325MG TAB PO PRN (22:39)
[2021-02-16] MEDS: FAMOTIDINE 20 MG TAB PO SCH (09:46)
[2021-02-16] MEDS ORDERED: DEXAMETHASONE 4 MG TAB PO SCH (10:00)
--- NOTE | 2021-02-16 13:39 | Discharge Summary ---
Providers - Providers Date of Admission: 02/11/21 19:35 Date of discharge: 02/16/21 Attending physician: MARY ABDALLA 02/11/21 21:23 Consult to Physician [CONS] Routine Comment: Consulting Provider: HECTOR ALVARADO Physician Instructions: Reason For Exam: Acute respiratory failure with hypoxia Primary care physician: SURFACING TECHNICIAN Hospitalization Condition: Fair Disposition: 01 HOME / SELF CARE / HOMELESS Final Discharge Diagnosis (Prints w/discharge instructions): --Acute hypoxic respiratory failure. --COVID-19 pneumonia Time spent for discharge: 34 minutes Core Measure Documentation - Palliative Care Palliative Care/ Comfort Measures: Not Applicable - Core Measures Any of the following diagnoses?: none Exam - Physical Exam Narrative exam: Limited physical exam due to COVID-19 pandemic to minimize transmission of the disease and to preserve PPE. Vital reviewed and stable. GENERAL: well-developed well-nourished -[place] female lying on bed appeared to be in no discomfort. HEENT: Normocephalic. Atraumatic. NECK: Supple. CHEST/LUNGS: breathing nonlabored. HEART/CARDIOVASCULAR: Heart rate stable on telemetry ABDOMEN: Visibly not distended SKIN: There is no rash NEURO: No focal motor deficit. Follows command. MUSCULOSKELETAL: No joint effusion EXTRIMITY: No swelling, no cyanosis or clubbing. PSYCH: Cooperative. - Constitutional Vitals: Temp Pulse Resp BP Pulse Ox 97.6 F 68 20 148/94 99 02/16/21 04:56 02/16/21 04:56 02/16/21 04:56 02/16/21 04:56 02/16/21 09:27 Plan Activity: advance as tolerated Weight Bearing Status: Weight Bear as Tolerated Diet: low fat, low salt Follow up with: PRIMARY CARE, [Primary Care Provider] - 7 Days Prescriptions: dexAMETHasone [Decadron] 8 mg PO DAILY #5 tablet Albuterol Mdi (or & Nicu Only) [ProAir HFA Inhaler] 2 puff IH QID PRN #8.5 gram PRN Reason: Shortness Of Breath
[2021-02-16] MEDS ORDERED: ASCORBIC ACID 500 MG TAB PO SCH (14:00)
[2021-02-16] MEDS ORDERED: CHOLECALCIFEROL (VIT D3) 5,000 UNIT TAB PO SCH (14:00)
[2021-02-16] MEDS ORDERED: ZINC SULFATE 220 MG CAP PO SCH (14:00)
[2021-02-16 14:34] VITALS: BP 135/80
== END 2021-02-16 17:45 | disposition home or self-care (01) | DRG 177 ==
LOC: ED 16:29 → 3A 19:35
PROVIDERS: ADMIT Internal Medicine; ATTEND Internal Medicine
PROC: XW033E5 Introduction of Remdesivir Anti-infective into Peripheral Vein, Percutaneous Approach, New Technology Group 5 (ICD-10-PCS; principal; 2021-02-12)
DX: U07.1 COVID-19 (principal); J96.01 Acute respiratory failure with hypoxia; J12.82 Pneumonia due to coronavirus disease 2019; E87.1 Hypo-osmolality and hyponatremia; R65.10 Systemic inflammatory response syndrome (SIRS) of non-infectious origin without acute organ dysfunction; I10 Essential (primary) hypertension; Z87.891 Personal history of nicotine dependence
CPT/HCPCS: 36415; 71045; 80053; 82140; 82728; 83615; 83880; 84145; 85025; 85379; 86140; 87040; 94760; 99406; G0378; J0456; J0696; J1100; J1170; J1650; J2405; J3010; J7030; J7050; J8540; U0003

== ENCOUNTER 2021-09-02 11:07 | Outpatient (CLI) | payer BC ==
[2021-09-02 11:55] LABS: Basophils % (Auto) 0.4 % (0.0-1.8); Eosinophils # (Auto) 0.1 K/mm3 (0.0-0.4); Eosinophils % (Auto) 2.3 % (0.0-4.3); Hematocrit 39.8 % (30.3-42.9); Lymphocytes # (Auto) 2.1 K/mm3 (1.2-5.4); Lymphocytes % (Auto) 37.4 % (13.4-35.0); Mean Corpuscular HGB Conc 33 % (30-34); Mean Corpuscular Volume 82 fl (79-97); Monocytes # (Auto) 0.4 K/mm3 (0.0-0.8); Monocytes % (Auto) 7.7 % (0.0-7.3); Platelet Count 265 K/mm3 (140-440); Red Blood Count 4.84 M/mm3 (3.65-5.03); Red Cell Distribution Width 15.2 % (13.2-15.2)
[2021-09-02 12:16] LABS: Alanine Aminotransferase 12 units/L (7-56); Albumin 4.5 g/dL (3.9-5); Blood Urea Nitrogen 19 mg/dL (7-17); Calcium 9.6 mg/dL (8.4-10.2); Chol/HDL Ratio 3.89 %; HDL Cholesterol 49 mg/dL (40-59); Hemolysis Index 3; LDL Cholesterol,Direct 128 mg/dL (50-130)
[2021-09-02 12:21] LABS: BUN/Creatinine Ratio 27
== END 2021-09-02 11:08 | disposition home or self-care (01) ==
LOC: LAB 11:07
PROVIDERS: ATTEND Internal Medicine
DX: Z00.00 Encounter for general adult medical examination without abnormal findings (principal); Z13.1 Encounter for screening for diabetes mellitus; K21.9 Gastro-esophageal reflux disease without esophagitis; R53.83 Other fatigue; I10 Essential (primary) hypertension; E55.9 Vitamin D deficiency, unspecified
CPT/HCPCS: 36415; 80053; 80061; 82306; 83036; 84443; 85025

== ENCOUNTER 2021-09-03 08:12 | Outpatient (CLI) | payer BC ==
--- NOTE | 2021-09-03 10:25 | XRay Report ---
LEFT HUMERUS 2 VIEWS INDICATION: M79.602 PAIN IN LEFT ARM. COMPARISON: None. IMPRESSION: There has been previous placement of an intramedullary iveth in the left humerus transvers ing a fracture in the mid to distal humeral shaft. Fracture lines are still evident with no convincin g bony bridging. No previous exams are presented for comparison but this is concerning for nonunion a t the fracture site. Please correlate with the patient's clinical history. No acute osseous abnormali ty is appreciated. The soft tissues are unremarkable. LEFT ELBOW 3 VIEWS INDICATION: M79.602 PAIN IN LEFT ARM. COMPARISON: None. IMPRESSION: No acute osseous or soft tissue abnormality. 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 Signer Name: Jaspal Weber Jr, MD Signed: 09/03/2021 10:20 AM Workstation Name: [id number]
== END 2021-09-03 08:13 | disposition home or self-care (01) ==
LOC: XRAY 08:12
PROVIDERS: ATTEND Internal Medicine
DX: M19.022 Primary osteoarthritis, left elbow (principal)

== ENCOUNTER 2021-09-20 06:34 | Day surgery (SDC) | payer BC ==
[2021-09-20] MEDS ORDERED: SODIUM CHLORIDE 0.9% 1000 ML 1,000 ML IV SCH (07:00)
--- NOTE | 2021-09-20 07:42 | Anesthesia Consultation ---
Anesthesia Consult and Med Hx Date of service: 09/20/21 - Airway Anesthetic Teeth Evaluation: Chipped (missing teeth) ROM Head & Neck: Adequate Mental/Hyoid Distance: Adequate Mallampati Class: Class II Intubation Access Assessment: Probably Good - Pulmonary Exam CTA: Yes - Cardiac Exam Cardiac Exam: RRR - Pre-Operative Health Status ASA Pre-Surgery Classification: ASA2 Proposed Anesthetic Plan: MAC (quit jan 2021) - Pulmonary Hx Smoking: Yes (quit in jan 2021) Hx Asthma: No Hx Respiratory Symptoms: No SOB: No COPD: No Home Oxygen Therapy: No Hx Pneumonia: No Hx Sleep Apnea: No - Cardiovascular System Hx Hypertension: Yes Hx Coronary Artery Disease: No Hx Heart Attack/AMI: No Hx Angina: No Hx Percutaneous Transluminal Coronary Angioplasty (PTCA): No Hx Cardia Arrhythmia: No Hx Pacemaker: No Hx Internal Defibrillator: No Hx Valvular Heart Disease: No Hx Heart Murmur: No Hx Peripheral Vascular Disease: No - Central Nervous System Hx Neuromuscular Disorder: No Hx Seizures: No CVA: No Hx Back Pain: Yes (sciatica pain down Left leg; Fibromyalgia) Hx Psychiatric Problems: No - Gastrointestinal Hx Ulcer: No Hx Gastroesophageal Reflux Disease: Yes - Endocrine Hx Renal Disease: No Hx End Stage Renal Disease: No Hx Cirrhosis: No Hx Liver Disease: No Hx Insulin Dependent Diabetes: No Hx Non-Insulin Dependent Diabetes: No Hx Thyroid Disease: No Hx Hypothyroidism: No Hx Hyperthyroidism: No - Hematic Hx Anemia: No Hx Sickle Cell Disease: No - Other Systems Hx Alcohol Use: No Hx Substance Use: No Hx Cancer: No
--- NOTE | 2021-09-20 07:45 | Anesthesia Day of Surgery ---
Anesthesia Day of Surgery - Day of Surgery Patient Examined: Yes Patient H&P Reviewed: Yes Patient is NPO: Yes Beta Blockers: No Tim's Test: N/A
--- NOTE | 2021-09-20 08:18 | Operative Report ---
Operative Report Operative Report: Date: 09/20/2021 Preop diagnosis: Epigastric pain, GERD Postop diagnosis: Same with Z-line at 40 cm gastritis and duodenitis Procedure: Esophagogastroduodenoscopy with biopsy of antrum and duodenum Surgeon: Dr. Garcia Anesthesia: MAC IV sedation Specimen: Biopsy of antrum for H. pylori and biopsy of the duodenum Estimated blood loss: Less than 5 cc. Procedure: Patient is taken into the endoscopic suite. Timeouts are completed. Under IV sedation and monitored anesthesia care bite block is placed. The flexible upper endoscope was advanced through the hypopharynx, and cricopharyngeus. Cords are visualized and are normal. The scope was advanced through the thoracic esophagus which is normal. The LES is visualized at 40 cm. There is no signs of advanced erosions no tumors. Scope was advanced through the LES and retroflexed. No hiatal hernia is seen. Scope was returned to forward-looking position and advanced through the midportion of the stomach where the antrum and incisura are visualized and are normal. Gastritis is seen in the antrum. A biopsy of the antrum was obtained for H. pylori. Scope was advanced through the pylorus and second and third portion of the duodenum. Duodenitis is seen and biopsy. The scope was then withdrawn. Biopsy of the LES is obtained. The procedure is ended.
--- NOTE | 2021-09-20 08:26 | Short Stay Summary ---
Short Stay Documentation Date of service: 09/20/21 - History H&P: obtained from office - Allergies and Medications Current Medications: Allergies No Known Allergies Allergy (Verified 02/11/21 21:26) Home Medications Medication Instructions Recorded Confirmed Last Taken Type Albuterol Mdi (or & Nicu Only) 2 puff IH QID PRN #8.5 gram 02/16/21 Unknown Rx [ProAir HFA Inhaler] Ascorbic Acid [Vitamin C] 1,000 mg PO BID #10 tablet 02/16/21 Unknown Rx Cholecalciferol (Vitamin D3) 5,000 unit PO DAILY #5 tablet 02/16/21 Unknown Rx [Vitamin D3] Zinc Sulfate 220 mg PO BID #10 capsule 02/16/21 Unknown Rx dexAMETHasone [Decadron] 8 mg PO DAILY #5 tablet 02/16/21 Unknown Rx Active Medications Sodium Chloride (Nacl 0.9% 1000 Ml) 1,000 mls @ 50 mls/hr IV DIRECT MARISA Stop: 09/20/21 21:00 - Physical exam General appearance: no acute distress HEENT: Atraumatic Heart: Regular rate - Brief post op/procedure progress note Date of procedure: 09/20/21 Pre-op diagnosis: GERD Post-op diagnosis: other (Gastritis and duodenitis) Procedure: EGD with biopsy of duodenum and antrum Anesthesia: MAC Findings: Gastritis and duodenitis Surgeon: MANUEL GARCIA Estimated blood loss: none Pathology: list (Biopsy of due duodenum and antrum) Specimen disposition: to lab Condition: stable Short Stay Discharge Plan Diet: regular Additional Instructions: Follow-up with Dr. Garcia in 1 week Follow up with: DAVID BURNETT MD [Primary Care Provider] - 7 Days
--- NOTE | 2021-09-20 09:03 | Post Anesthesia Evaluation ---
- Post Anesthesia Evaluation Patient Participated: Yes Airway Patent: Yes Stable Respiratory Function: Yes Nausea/Vomiting: No Temp > 96.8F: Yes Pain Manageable: Yes Adequeate Hydration: Yes Anesthesia Complications: No Block Receding Appropriately: Not Applicable Patient on Ventilator: No
[2021-09-20 10:10] VITALS: BP 139/82
== END 2021-09-20 09:00 | disposition home or self-care (01) ==
LOC: GIO 06:34
PROVIDERS: ATTEND Surgery
DX: R10.13 Epigastric pain (principal); K21.9 Gastro-esophageal reflux disease without esophagitis; K29.80 Duodenitis without bleeding; K29.70 Gastritis, unspecified, without bleeding; I10 Essential (primary) hypertension; M79.7 Fibromyalgia; Z79.899 Other long term (current) drug therapy; Z87.891 Personal history of nicotine dependence; Z87.01 Personal history of pneumonia (recurrent); Z98.891 History of uterine scar from previous surgery; Z98.890 Other specified postprocedural states
CPT/HCPCS: 43239; J7030

== ENCOUNTER 2021-09-27 12:21 | Emergency (ER) | payer BC ==
[2021-09-27] MEDS ORDERED: dexAMETHasone 4 MG/ML VIAL IM ONE (15:36)
[2021-09-27] MEDS ORDERED: CYCLOBENZAPRINE 10 MG TAB PO ONE (15:37)
[2021-09-27] MEDS ORDERED: KETOROLAC 10 MG TAB PO ONE (15:37)
[2021-09-27] MEDS ORDERED: ACETAMINOPHEN W/CODEINE 300-30 MG TAB PO ONE (15:37)
--- NOTE | 2021-09-27 15:41 | Emergency Department Report ---
ED Extremity Problem HPI - General Chief complaint: Pain General Stated complaint: LT LEG PAIN Time Seen by Provider: 09/27/21 15:36 Source: patient Mode of arrival: Ambulatory Limitations: No Limitations - History of Present Illness Initial comments: 56-year-old black female with no past medical history presents to the emergency department for evaluation of 2-week history of worsening left lower back pain that radiates down her entire left leg. She denies injury and trauma and states that pain is 10 out of 10 and feels like a burning pain down her entire leg. She states that she was seen by her primary care doctor for the same and started on naproxen and Flexeril without any improvement. She denies fever, abdominal pain, and urinary symptoms. MD Complaint: extremity pain -: Gradual, week(s) (To) Location: left, lower extremity History of Same: Yes -: No myalgia, No arthralgia, No fever, No associated dyspnea, No associated chest pain Quality: burning, aching Consistency: constant Worsens with: weight bearing Associated Symptoms: denies: chest pain, shortness of breath, fever, myalgias, arthralgias, rash - Related Data Previous Rx's Medication Instructions Recorded Last Taken Type Albuterol Mdi (or & Nicu Only) 2 puff IH QID PRN #8.5 gram 02/16/21 Unknown Rx [ProAir HFA Inhaler] Ascorbic Acid [Vitamin C] 1,000 mg PO BID #10 tablet 02/16/21 Unknown Rx Cholecalciferol (Vitamin D3) 5,000 unit PO DAILY #5 tablet 02/16/21 Unknown Rx [Vitamin D3] Zinc Sulfate 220 mg PO BID #10 capsule 02/16/21 Unknown Rx dexAMETHasone [Decadron] 8 mg PO DAILY #5 tablet 02/16/21 Unknown Rx Acetaminophen/Codeine [Tylenol 1 tab PO Q6H PRN #12 tab 09/27/21 Unknown Rx /Codeine # 3 tab] Lidocaine [Lidoderm] 1 each TP DAILY PRN #10 patch 09/27/21 Unknown Rx methylPREDNISolone [Medrol 4MG 4 mg PO DAILY #1 pack 09/27/21 Unknown Rx DOSEPAK (21 tabs)] Allergies Allergy/AdvReac Type Severity Reaction Status Date / Time No Known Allergies Allergy Verified 02/11/21 21:26 ED Review of Systems ROS: Stated complaint: LT LEG PAIN Other details as noted in HPI Comment: All other systems reviewed and negative Constitutional: denies: chills, fever ENT: denies: congestion Respiratory: denies: cough, shortness of breath, SOB with exertion, SOB at rest Cardiovascular: denies: chest pain, palpitations, dyspnea on exertion Gastrointestinal: denies: abdominal pain, nausea, vomiting Genitourinary: denies: urgency, dysuria, frequency, hematuria, discharge Musculoskeletal: back pain Skin: denies: rash Neurological: denies: headache, weakness ED Past Medical Hx - Past Medical History Previous Medical History?: Yes Hx Hypertension: Yes Hx Heart Attack/AMI: No Hx GERD: Yes Hx Liver Disease: No Hx Renal Disease: No Hx Sickle Cell Disease: No Hx Seizures: No Hx Asthma: No Hx COPD: No - Surgical History Past Surgical History?: Yes Hx Pacemaker: No Hx Internal Defibrillator: No Additional Surgical History: x 4, Left arm - Social History Smoking Status: Former Smoker - Medications Home Medications: Home Medications Medication Instructions Recorded Confirmed Last Taken Type Albuterol Mdi (or & Nicu Only) 2 puff IH QID PRN #8.5 gram 02/16/21 Unknown Rx [ProAir HFA Inhaler] Ascorbic Acid [Vitamin C] 1,000 mg PO BID #10 tablet 02/16/21 Unknown Rx Cholecalciferol (Vitamin D3) 5,000 unit PO DAILY #5 tablet 02/16/21 Unknown Rx [Vitamin D3] Zinc Sulfate 220 mg PO BID #10 capsule 02/16/21 Unknown Rx dexAMETHasone [Decadron] 8 mg PO DAILY #5 tablet 02/16/21 Unknown Rx Acetaminophen/Codeine [Tylenol 1 tab PO Q6H PRN #12 tab 09/27/21 Unknown Rx /Codeine # 3 tab] Lidocaine [Lidoderm] 1 each TP DAILY PRN #10 patch 09/27/21 Unknown Rx methylPREDNISolone [Medrol 4MG 4 mg PO DAILY #1 pack 09/27/21 Unknown Rx DOSEPAK (21 tabs)] ED Physical Exam - General Limitations: No Limitations General appearance: alert, in no apparent distress - Head Head exam: Present: atraumatic, normocephalic - Eye Eye exam: Present: normal appearance. Absent: conjunctival injection - Neck Neck exam: Present: normal inspection, full ROM. Absent: tenderness, lymphadenopathy - Respiratory Respiratory exam: Absent: respiratory distress - Cardiovascular Cardiovascular Exam: Present: regular rate - GI/Abdominal GI/Abdominal exam: Present: soft. Absent: distended - Extremities Exam Extremities exam: Present: normal inspection, full ROM, tenderness (Anterior left lower extremity) - Expanded Lower Extremity Exam Left Upper Leg exam: Present: normal inspection Knee exam: Present: normal inspection Lower Leg exam: Present: normal inspection Ankle exam: Present: normal inspection Foot/Toe exam: Present: normal inspection Neuro vascular tendon exam: Present: no vascular compromise. Absent: pulse deficit, abnormal cap refill, motor deficit, extremity cold to touch, pallor Gait: Positive: observed and limited by pain - Back Exam Back exam: Absent: CVA tenderness (R), CVA tenderness (L), vertebral tenderness - Expanded Back Exam Expanded Back exam: Absent: saddle anesthesia Back exam: Positive Straight Leg Raise: Left 1 - Tenderness to touch - Neurological Exam Neurological exam: Present: alert, oriented X3, CN II-XII intact, normal gait - Psychiatric Psychiatric exam: Present: normal affect, normal mood - Skin Skin exam: Present: warm, dry, intact, normal color ED Course Vital Signs 09/27/21 09/27/21 12:47 16:19 Temperature 98.4 F Pulse Rate 64 97 H Respiratory 18 Rate Blood Pressure 149/83 Blood Pressure 132/78 [Left] O2 Sat by Pulse 100 97 Oximetry ED Medical Decision Making - Medical Decision Making 56-year-old black female with no past medical history presents to the emergency department for evaluation of 2-week history of worsening left lower back pain that radiates down her entire left leg. She denies injury and trauma and states that pain is 10 out of 10 and feels like a burning pain down her entire leg. She states that she was seen by her primary care doctor for the same and started on naproxen and Flexeril without any improvement. She denies fever, abdominal pain, and urinary symptoms. Exam and symptoms consistent with sciatic nerve pain. Patient was given Decadron 8 mg IM, 10 mg of Toradol p.o., Flexeril 10 mg p.o. and 1 Tylenol 3 while in the emergency department and discharged home with a Medrol Dosepak, Lidoderm patches, and Tylenol 3 to use as needed for pain. She is advised to t neyda medications as prescribed, follow-up with her primary care provider if no improvement or worsening symptoms, and return to the emergency department for any concerning symptoms. She verbalizes understanding of and agreement with plan of care. Critical care attestation.: If time is entered above; I have spent that time in minutes in the direct care of this critically ill patient, excluding procedure time. ED Disposition Clinical Impression: Sciatic leg pain Disposition: HOME / SELF CARE / HOMELESS Is pt being admited?: No Does the pt Need Aspirin: No Condition: Stable Instructions: Sciatica, [id number], Sciatica Rehab-SportsMed Additional Instructions: Take medications as prescribed. Continue medications as prescribed previously by your doctor. Follow-up with your primary care provider or in the ER for any worsening symptoms or no improvement. Prescriptions: Lidocaine [Lidoderm] 1 each TP DAILY PRN #10 patch PRN Reason: Pain, Moderate (4-6) methylPREDNISolone [Medrol 4MG DOSEPAK (21 tabs)] 4 mg PO DAILY #1 pack Acetaminophen/Codeine [Tylenol /Codeine # 3 tab] 1 tab PO Q6H PRN #12 tab PRN Reason: Pain , Severe (7-10) Referrals: DAIVD BURNETT MD [Staff Physician] - 3-5 Days Forms: Work/School Release Form(ED) Time of Disposition: 15:40
[2021-09-27 16:20] VITALS: BP 132/78
== END 2021-09-27 16:20 | disposition home or self-care (01) ==
LOC: ED 12:21
DX: M54.32 Sciatica, left side (principal); Z87.891 Personal history of nicotine dependence; I10 Essential (primary) hypertension
CPT/HCPCS: 96372; 99282; J1100

== ENCOUNTER 2021-10-01 07:38 | Outpatient (CLI) | payer BC ==
[2021-10-01 08:41] LABS: Blood Urea Nitrogen 23 mg/dL (7-17)
--- NOTE | 2021-10-01 10:04 | Cat Scan Report ---
CT ABDOMEN AND PELVIS WITH CONTRAST HISTORY: R10.9 UNSPECIFIED ABDOMINAL PAIN COMPARISON: None. TECHNIQUE: Axial CT images were obtained through the abdomen and pelvis after 100 cc of Omnipaque 300 IV contrast. Sagittal and coronal reformatted images. All CT scans at this location are performed us ing CT dose reduction for ELYSERA by means of automated exposure control. FINDINGS: CT ABDOMEN: Lung Bases: Clear. Liver: No significant abnormality. Biliary: No significant abnormality. Spleen: No significant abnormality. Unenlarged. Pancreas: No significant abnormality. Adrenals: No significant abnormality. Kidneys: No significant abnormality. Lymphatics: No lymphadenopathy. Vasculature: No significant abnormality. Bowel/Peritoneum: No significant abnormality. No free air. No free fluid. Normal appendix. There is m oderate to large fecal matter throughout the colon. CT PELVIS: : No significant abnormality. Osseous Structures: No acute abnormality or bone lesion. Mild discogenic DJD at L4-5. Left L5 hemitra nsitional vertebra is noted. Additional Findings: None IMPRESSION: No acute process is identified in the abdomen or pelvis. [id number] constipation. Signer Name: Jaspal Weber Jr, MD Signed: 10/01/2021 9:59 AM Workstation Name: [id number]
== END 2021-10-01 07:39 | disposition home or self-care (01) ==
LOC: CT 07:38
PROVIDERS: ATTEND Surgery
DX: K59.00 Constipation, unspecified (principal); R10.9 Unspecified abdominal pain
CPT/HCPCS: 36415; 74177; 82565; 84520; Q9967

== ENCOUNTER 2021-11-25 05:51 | Outpatient (CLI) | payer BC ==
--- NOTE | 2021-11-25 09:01 | Fluoroscopy Report ---
BARIUM SWALLOW Indication: R10.9 UNSPECIFIED ABDOMINAL PAIN. Technique: Single and double contrast barium technique utilized to evaluate the esophagus. FINDINGS: To begin the exam, swallowing was evaluated in the lateral position under direct fluorosco py. Swallowing was normal. No mucosal irregularity, mass, mass effect, or critical stenosis. Occasional tertiary contractions were witnessed in the mid to distal esophagus with mild delayed esophageal emptying on some of the sw allows. No hiatal hernia or reflux was witnessed during this exam. IMPRESSION: Mild esophageal dysmotility as described. No mass or mucosal defect. No reflux was witne ssed during this exam. Fluoroscopic time: 3.3 minutes Number of fluoroscopic images: 61 Signer Name: Jaspal Weber Jr, MD Signed: 11/25/2021 8:56 AM Workstation Name: [id number]
== END 2021-11-25 05:52 | disposition home or self-care (01) ==
LOC: FLUORO 05:51
PROVIDERS: ATTEND Surgery
DX: R10.9 Unspecified abdominal pain (principal)
CPT/HCPCS: 74220

== ENCOUNTER 2021-12-10 08:26 | Outpatient (CLI) | payer BC ==
[2021-12-10 12:52] LABS: Chol/HDL Ratio 4.16 %
== END 2021-12-10 08:27 | disposition home or self-care (01) ==
LOC: LABHHL 08:26
PROVIDERS: ATTEND Internal Medicine
DX: E11.9 Type 2 diabetes mellitus without complications (principal); E78.5 Hyperlipidemia, unspecified
CPT/HCPCS: 36415; 80061; 83036